=== PATIENT | female | born 1995 | race Caucasian/White ===

== ENCOUNTER 2023-02-26 11:10 | Emergency (ER) | payer BC, SELFPAY ==
[2023-02-26 11:12] VITALS: BP 136/88; PULSE 67; RESP 18; TEMP 35.8; O2SAT 98; BMI 34.7
--- NOTE | 2023-02-26 11:54 | ED.RN ---
14months pp; started w/ vag bleeding 2 weeks prior, has been continuous since. has saturated 2-3 tampons/day, currently breast feeding.
[2023-02-26] MEDS: 0.9% Normal Saline (1000mL) 1,000 ML 999 ML IV (12:07)
[2023-02-26 12:11] LABS: Absolute Lymphocyte Count 1.44 X10^3/uL (0.83-4.51); Absolute Neutrophil Count 4.7 X10^3/uL (2.0-7.7); Basophil# 0.02 X10^3/uL; Basophil% 0.3 % (0-1); Eosinophil# 0.12 X10^3/uL; Eosinophils% 1.7 % (0-5); Lymphocyte # 1.44 X10^3/ul (0.83-4.51); Lymphocyte % 20.8 % (19-41); Mean Corp Hgb Conc 32.6 g/dL (32-36); Mean Corpuscular Hgb 29.3 pg (27.0-32.0); Mean Platelet Vol. 10.5 fl (6.2-12.0); Monocyte# 0.63 X10^3/uL; Monocyte% 9.1 % (0-10); NRBC Flagged by Analyzer 0 % (0-5); Neutrophil % 67.8 % (47-70); Platelet Count 248 K/mm3 (150-450); RBC Distribution Width CV 12.7 % (11.6-14.6); RBC Distribution Width SD 42.2 fl (35.1-43.9); Red Blood Count 4.78 M/mm3 (4.2-5.4); White Blood Count 6.9 K/mm3 (4.4-11.0)
[2023-02-26 12:14] LABS: Bacteria 0 SEEN /hpf (None Seen); Mucous, Urine 0 SEEN /hpf (<or=2+); White Blood Cells 0 SEEN /hpf (0-5)
[2023-02-26 12:17] LABS: Color, Urine Yellow (Yellow); Glucose, Dipstick Normal (Normal); Ketone-Dipstick Negative (Negative); Leukocyte Esterase-Dipstick Negative /ul (Negative); Nitrite-Dipstick Negative (Negative); Occult Blood-Urine 50 /ul (Negative); Protein-Dipstick Negative (Negative); Urine Bilirubin Dipstick Negative (Negative); Urine Clarity Sl. Cloudy (Clear); Urine Urobilinogen Normal (Normal)
[2023-02-26 12:23] LABS: Red Blood Cells-Urine 0-5 SEEN /hpf (0-5); Squamous Epithelial Cells - UA 0-5 SEEN /hpf (5-10)
--- NOTE | 2023-02-26 12:24 | ED.VIS.FEGU ---
HPI HPI - Female History of Present Illness Chief Complaint: Vag Bld, Preg Narrative Narrative: Patient is a 27-year-old female who is presenting to the ER with her with chief complaint of dysfunctional uterine bleeding for the past 2 weeks. Patient took 2 test last evening that were positive. Patient is a nurse with hospice care. Patient's had no recent trauma in the past 2 weeks elicit any type of bleeding. Patient just had a 37-week delivery 14 months ago approximately with no complications besides preeclampsia. Patient is a G1, P1. Patient thinks she might of been a second time in the past, she passed a large clot in the toilet years ago, it was never confirmed . Patient is not trying to get at this time, but patient is not stopping it. They are not using any control or protection with intercourse. Patient has intermittent lightheaded and dizzy, intermittent vertigo, no vertigo today. No chest pain or shortness of breath. No abdominal pain, nausea or vomiting. Patient is having urinary frequency. No other acute complaints. [facility] Medical History (Updated 02/26/23 @ 13:[address] Moshe Sal, DO) delivery delivered Endometriosis Pre-eclampsia Allergy/AdvReac Type Severity Reaction Status Date / Time No Known Allergies Allergy Verified 02/26/23 11:11 Social History Smoking Status: Never smoker ROS ROS ED ROS Narrative REVIEW OF SYSTEMS: Unless otherwise stated in this report the patient's positive and negative responses for review of systems for constitutional, eyes, ENT, cardiovascular, respiratory, gastrointestinal, neurological, , musculoskeletal, and integument systems and related systems to the presenting problem are either stated in the history of present illness or were not pertinent or were negative for the symptoms and/or complaints related to the presenting medical problem. EXAM Physical Exam Narrative Exam Narrative: Vital signs reviewed and patient is not hypoxic. General: The patient appears well and in no apparent distress. Patient is resting comfortably on cart. Not toxic, lethargic, or listless. Skin: Warm, dry, no pallor noted. There is no rash noted. Head: Normocephalic, atraumatic Eye: Normal conjunctiva, no drainage, EOMI. PERRL. Ears, Nose, Mouth, and Throat: oral mucosa is moist. Nares patent. Mouth without vesicles. Cardiovascular: Regular Rate and Rhythm, no murmurs, gallops, or rubs Respiratory: Patient is in no distress, no accessory muscle use, lungs are clear to auscultation, no wheezing, rales or rhonchi Back: non-tender, no CVA tenderness bilaterally to percussion. NO CTLS midline or paraspinal tenderness to palpation. GI: Soft, mild suprapubic tenderness to palpation, no peritoneal signs, no other pain to palpation with abdominal exam, no flank pain bilateral, no tenderness to palpation, no masses appreciated. No rebound, guarding, or rigidity noted. Musculoskeletal: The patient has full range of motion of all extremities and joints with no difficulty. Patient has no motor, no sensory deficits. Neurological: A&O x4, normal speech, no focal neurological deficits. Psychiatric: Cooperative Const Vital Signs: 02/26/23 11:12 Temperature 96.4 F L Temperature Source Temporal Pulse Rate 67 Respiratory Rate 18 Blood Pressure 136/88 H Blood Pressure Mean 104 Pulse Ox 98 Oxygen Delivery Method Room Air MDM MDM MDM Narrative Medical decision making narrative: Patient had IV established, patient was given 1 L of IV fluids, urine was checked, CBC, along with hCG quant. Patient has had 2 weeks of intermittent vaginal bleeding, nothing significant. Patient had 2 test were positive last evening. Patient CBC is normal today, urine shows no signs of infection, but is noted secondary to vaginal bleeding. Patient CBC, urine showed no acute findings. Patient's hCG quant was 28. During pelvic exam was offered, patient declined, stating that she will wait for her CAMPAIGN ADVISOR appointment on Wednesday if needed. Patient has minimal pain, patient states she quant is 28, no indication for imaging at this time. Patient agrees. Patient has an appointment scheduled on Wednesday with her CAMPAIGN ADVISOR Dr. Suarez in [place]. Patient increase fluids and continue vitamins. No questions at discharge Patient does have a follow-up appointment with Dr. Suarez in [place], her CAMPAIGN ADVISOR on Wednesday. Lab Data Attestation: I reviewed the patient's lab results. Labs: Laboratory Results - last 24 hr 02/26/23 02/26/23 11:55 12:10 WBC 6.9 RBC 4.78 Hgb 14.0 Hct 43.0 MCV 90.0 MCH 29.3 MCHC 32.6 RDW Std Deviation 42.2 RDW Coeff of [place] 12.7 Plt Count 248 MPV 10.5 Immature Gran % (Auto) 0.300 Neut % (Auto) 67.8 Lymph % (Auto) 20.8 [place] % (Auto) 9.1 Eos % (Auto) 1.7 Baso % (Auto) 0.3 Absolute Neuts (auto) 4.7 Absolute Lymphs (auto) 1.44 Nucleated RBC % 0 HCG, Quant 28 H Urine Color Yellow Urine Clarity Sl. Cloudy Urine pH 7.0 Ur Specific [place] 1.010 Urine Protein Negative Urine Glucose (UA) Normal Urine Ketones Negative Urine Occult Blood 50 H Urine Nitrite Negative Urine Bilirubin Negative Urine Urobilinogen Normal Ur Leukocyte Esterase Negative Urine RBC 0-5 SEEN Urine WBC 0 SEEN Ur Squamous Epith Cells 0-5 SEEN Urine Bacteria 0 SEEN Urine Mucus 0 SEEN Blood Type B POSITIVE Discharge Plan Triage Chief Complaint: Vag Bld, Preg ED Provider: Moshe Sal Dx/Rx/DC Orders Clinical Impression: DUB (dysfunctional uterine bleeding), Miscarriage, threatened, early Instructions: Understanding Miscarriage ..., ED Dysfunctional Uterine Bleeding, ED Possible Miscarriage ... Primary Care Provider: Shwetha Hall Referrals: NOT,DEFINED [Non-Staff] - Activity Restrictions/Additional Instructions: Increase fluids at home. Use Tylenol as needed for any type of pain. Your lab work and urine showed no acute changes. Follow-up with Dr. Suarez at your CAMPAIGN ADVISOR appointment on Wednesday. Keep taking vitamins daily. Your HCG was 28 today. Disposition Disposition: Home, Self Care
[2023-02-26 12:51] LABS: hCG Titer Quant., Serum 28 mIU/mL (1-3)
[2023-02-26 13:29] VITALS: RESP 18
== END 2023-02-26 13:38 | disposition home or self-care (01) ==
PROVIDERS: Emergency Provider Emergency Medicine; PCP Family Medicine; Visit Provider Emergency Medicine
DX: O20.0 Threatened abortion (principal); N93.8 Other specified abnormal uterine and vaginal bleeding; Z3A.00 Weeks of gestation of pregnancy not specified
CPT/HCPCS: 81001; 84702; 85025; 86900; 86901; 96360; 99282; A4216